=== PATIENT | male | born 1990 | race African-American/Black ===

== ENCOUNTER 2019-09-15 20:04 | Emergency (ER) | payer OTHER ==
[2019-09-15] MEDS ORDERED: SODIUM CHLORIDE 0.9% 1,000 ML IV STA (21:33)
[2019-09-15 22:19] LABS: African American GFR (CKD) >90 (>60 ml/min/1.73 sqM); Albumin 4.1 g/dL (3.5-5.0); Alkaline Phosphatase 62 U/L (38-126); Anion Gap 8 mmol/L; Calcium 9.1 mg/dL (8.4-10.2); Carbon Dioxide 25 mmol/L (22-30); Chloride 104 mmol/L (98-107); Glucose 78 mg/dL (74-99); Non-African American GFR(CKD) >90 (>60 ml/min/1.73 sqM); Potassium 4.1 mmol/L (3.5-5.1); Sodium 137 mmol/L (137-145); Total Bilirubin 1.6 mg/dL (0.2-1.3); Total Protein 6.9 g/dL (6.3-8.2)
[2019-09-15 22:21] LABS: Basophils # (A) 0.1 k/uL (0-0.2); Basophils % (A) 1 %; Eosinophils # (A) 0.2 k/uL (0-0.7); Eosinophils % (A) 3 %; HCT 47.6 % (39.0-53.0); HGB 16.2 gm/dL (13.0-17.5); Lymphocytes # (A) 1.9 k/uL (1.0-4.8); Lymphocytes % (A) 34 %; MCHC 34.1 g/dL (31.0-37.0); Mean Platelet Volume 9.4; Monocytes # (A) 0.3 k/uL (0-1.0); Monocytes % (A) 5 %; Neutrophils # (A) 3.1 k/uL (1.3-7.7); Neutrophils % (A) 55 %; Platelet Count 222 k/uL (150-450); RBC 5.23 m/uL (4.30-5.90); RDW 12.5 % (11.5-15.5); WBC 5.6 k/uL (3.8-10.6)
--- NOTE | 2019-09-15 22:36 | XR ---
EXAMINATION TYPE: XR chest 2V DATE OF EXAM: 09/15/2019 COMPARISON: NONE HISTORY: Hypertension and tachycardia TECHNIQUE: FINDINGS: Heart and mediastinum are normal. Lungs are clear. Diaphragm is normal. Bony thorax appears normal. IMPRESSION: Normal chest.
--- NOTE | 2019-09-15 22:37 | XR ---
EXAMINATION TYPE: XR KUB DATE OF EXAM: 09/15/2019 COMPARISON: NONE HISTORY: Hypertension TECHNIQUE: 2 views FINDINGS: 2 views upright were obtained and show no sign of intestinal obstruction or pneumoperitoneu m. Fecal pattern is normal. There is no sign of a mass. There are no pathologic calcifications over t he kidneys. IMPRESSION: Nonacute abdomen.
[2019-09-15 23:39] VITALS: BP 119/89; PULSE 90; RESP 20; TEMP 98.1
--- NOTE | 2019-09-15 23:41 | ED ---
General Adult HPI - General Chief complaint: Recheck/Abnormal Lab/Rx Stated complaint: High BP & heart rate Time Seen by Provider: 09/15/19 21:20 Source: patient, RN notes reviewed, old records reviewed Mode of arrival: ambulatory Limitations: no limitations - History of Present Illness Initial comments: 28-year-old male patient sent over from plasma donation center for elevated blood pressure, tachycardia. Patient denies any acute complaints. Denies any chest pain or shortness of breath. Does report that he has been having some waxing and waning abdominal cramping however also reports that he has not been eating very much do not having any money for food which could also be causing his discomfort he says. Denies any other complaints. Systemic: Pt denies fatigue, fever/chills, rash. Pt denies weakness, night sweats, weight loss. Neuro: Pt denies headache, visual disturbances, syncope or pre-syncope. HEENT: Pt denies ocular discharge or irritation, otalgia, rhinorrhea, pharyngitis or notable lymphadenopathy. Cardiopulmonary: Pt denies chest pain, SOB, heart palpitations, dyspnea on exertion. Abdominal/GI: Pt denies n/v/d. : Pt denies dysuria, burning w/ urination, frequency/urgency. Denies new onset urinary or bowel incontinence. MSK: Pt denies myalgia, loss of strength or function in extremities. Neuro: Pt denies new onset weakness, paresthesias. - Related Data Allergies Allergy/AdvReac Type Severity Reaction Status Date / Time No Known Allergies Allergy Verified 09/15/19 20:20 Review of Systems ROS Statement: Those systems with pertinent positive or pertinent negative responses have been documented in the HPI. ROS Other: All systems not noted in ROS Statement are negative. Past Medical History Past Medical History: No Reported History History of Any Multi-Drug Resistant Organisms: None Reported Past Surgical History: No Surgical Hx Reported Past Psychological History: No Psychological Hx Reported Smoking Status: Current every day smoker Past Alcohol Use History: None Reported Past Drug Use History: Marijuana General Exam - General Exam Comments Initial Comments: Constitutional: NAD, AOX3, Pt has pleasant affect. HEENT: NC/AT, trachea midline, neck supple, no lymphadenopathy. Posterior pharynx non erythematous, without exudates. External ears appear normal, without discharge. Mucous membranes moist. Eyes PERRLA, EOM intact. There is no scleral icterus. No pallor noted. Cardiopulmonary: RRR, no murmurs, rubs or gallops, no JVD noted. Lungs CTAB in anterior and posterior younger. No peripheral edema. Abdominal exam: Abdomen soft and non-distended. Abdomen non-tender to palpation in all 4 quadrants. Bowel sounds active in LLQ. No hepatosplenomegaly. No ecchymosis Neuro: CN II-XII grossly intact. No nuchal rigidity. No raccon eyes, no roberts sign, no hemotympanum. No cervical spinal tenderness. MSK: No posterior calf tenderness bilaterally, homans sign negative bilaterally. Posterior tibialis and radial pulse +2 bilaterally. Sensation intact in upper and lower extremities. Full active ROM in upper and lower extremities, 5/5 stregnth. Limitations: no limitations Course Vital Signs 09/15/19 09/15/19 20:18 23:38 Temperature 97.9 F 98.1 F Pulse Rate 101 H 90 Respiratory 18 20 Rate Blood Pressure 125/86 119/89 O2 Sat by Pulse 100 98 Oximetry Medical Decision Making - Medical Decision Making 28 old male patient sent in for evaluation from plasma donation center for elevated heart rate and blood pressure. Patient vital signs are stable upon arrival. Physical exam test for acute pathology. Laboratory investigations were obtained and are non-impressive. EKG is nonischemic. Patient feeling much better after eating and drinking and hospital. Patient is being picked up by his brother and he will now live in [place] with his family where he'll have good access to food. Has a follow-up with primary care provider tomorrow and will return to ER if condition worsens. Case discussed in depth with Dr Mendez. - Lab Data Result diagrams: 09/15/19 22:00 09/15/19 22:00 Lab Results 09/15/19 09/15/19 09/15/19 Range/Units 22:00 22:00 22:00 WBC 5.6 (3.8-10.6) k/uL RBC 5.23 (4.30-5.90) m/uL Hgb 16.2 (13.0-17.5) gm/dL Hct 47.6 (39.0-53.0) % MCV 91.0 (80.0-100.0) fL MCH 31.0 (25.0-35.0) pg MCHC 34.1 (31.0-37.0) g/dL RDW 12.5 (11.5-15.5) % Plt Count 222 (150-450) k/uL Neutrophils % 55 % Lymphocytes % 34 % Monocytes % 5 % Eosinophils % 3 % Basophils % 1 % Neutrophils # 3.1 (1.3-7.7) k/uL Lymphocytes # 1.9 (1.0-4.8) k/uL Monocytes # 0.3 (0-1.0) k/uL Eosinophils # 0.2 (0-0.7) k/uL Basophils # 0.1 (0-0.2) k/uL Sodium 137 (137-145) mmol/L Potassium 4.1 (3.5-5.1) mmol/L Chloride 104 (98-107) mmol/L Carbon Dioxide 25 (22-30) mmol/L Anion Gap 8 mmol/L BUN 11 (7-17) mg/dL Creatinine 0.85 (0.52-1.04) mg/dL Est GFR (CKD-EPI)AfAm >90 (>60 ml/min/1.73 sqM) Est GFR (CKD-EPI)NonAf >90 (>60 ml/min/1.73 sqM) Glucose 78 (74-99) mg/dL Calcium 9.1 (8.4-10.2) mg/dL Total Bilirubin 1.6 H (0.2-1.3) mg/dL AST 20 (14-36) U/L ALT 11 (4-34) U/L Alkaline Phosphatase 62 (38-126) U/L Troponin I <0.012 (0.000-0.034) ng/mL Total Protein 6.9 (6.3-8.2) g/dL Albumin 4.1 (3.5-5.0) g/dL Lipase 108 (23-300) U/L - EKG Data -: EKG Interpreted by Me (and Dr Mendez ) EKG Comments: Ventricular rate 77,NJ interval 142, QRS 80, QT/QTC 370/418. Sinus rhythm with marked sinus arrhythmia. Otherwise normal EKG, no concern for acute ischemia. Disposition Clinical Impression: Tachycardia Narrative: Evaluation for hypertension and tachycardia. Disposition: HOME SELF-CARE Condition: Stable Instructions (If sedation given, give patient instructions): Tachycardia (ED) Additional Instructions: Follow-up with primary care provider tomorrow. Have blood pressure and heart rate rechecked. Return to ER if condition worsens in any way. Is patient prescribed a controlled substance at d/c from ED?: No Referrals: None,Stated [Primary Care Provider] - 1-2 days
[2019-09-19 07:53] LABS: ALT 11 U/L (4-49); AST 20 U/L (17-59); Blood Urea Nitrogen 11 mg/dL (9-20)
== END 2019-09-15 23:49 | disposition home or self-care (01) ==
LOC: EC 20:04 → EDSEX 20:04 → EC 23:49
DX: R00.0 Tachycardia, unspecified (principal); R03.0 Elevated blood-pressure reading, without diagnosis of hypertension; R10.9 Unspecified abdominal pain; F17.200 Nicotine dependence, unspecified, uncomplicated
CPT/HCPCS: 36415; 71046; 74018; 80053; 83690; 84484; 85025; 93005; 96360; 99285